=== PATIENT | male | born 1975 | race Hispanic/Latino ===

== ENCOUNTER 2019-12-23 14:00 | Inpatient (IN) | payer BC ==
[~2019-12-23] VITALS: Ht 166.4 cm; Wt 102.2 kg
[2019-12-23 08:46] VITALS: BP 115/73
[2019-12-27] VITALS (17 sets, daily range): BP systolic 109–127; BP diastolic 64–73
[2019-12-27] MEDS ORDERED: VANCOMYCIN 2 GM in SODIUM CHLORIDE 0.9% 500ML 500 ML IV SCH (05:00)
[2019-12-27] MEDS ORDERED: CEFAZOLIN 3GM /D5W 100ML 100 ML IV PRN (08:00)
[2019-12-27] MEDS ORDERED: LACTATED RINGERS 1000ML 1,000 ML IV ONE (09:02)
[2019-12-27] MEDS: CEFAZOLIN SODIUM 1 GM VIAL IVP SCH ×2 (09:45→16:17)
[2019-12-27 10:01] LABS: HEMATOCRIT 45.3 % (42-54); MEAN CORPUSCULAR HEMOGLOBIN 27.6 pg (27.0-33.0); MEAN CORPUSCULAR HGB CONC 32.7 g/dL (32.0-36.0); MEAN CORPUSCULAR VOLUME 84.5 fL (79-99); RED BLOOD CELL COUNT(AUTO) 5.36 MIL/uL (4.50-6.20); RED CELL DISTRIBUTION WIDTH 13.4 % (11.0-15.5); WHITE BLOOD COUNT (AUTO) 9.3 K/uL (4.8-10.8)
[2019-12-27 10:15] LABS: CREATININE 0.9 mg/dL (0.5-1.5); POTASSIUM 4.2 mmol/L (3.5-5.1)
[2019-12-27 10:24] LABS: INR 0.98 (0.85-1.15); PROTHROMBIN TIME 10.6 SEC (9.6-11.6)
[2019-12-27 10:31] LABS: APPEARANCE,URINE Clear (CLEAR); BILIRUBIN,URINE Negative (NEGATIVE); COLOR,URINE Yellow (YELLOW); GLUCOSE, URINE (UA) Negative (NEGATIVE); KETONES,URINE Negative (NEGATIVE); LEUKOCYTE ESTERASE ,URINE Negative (NEGATIVE); NITRATE,URINE Negative (NEGATIVE); OCCULT BLOOD,URINE Trace (NEGATIVE); PH,URINE 5.5 (5.0-8.0); PROTEIN,URINE Negative (NEGATIVE); UROBILINOGEN,URINE 0.2 mg/dL (0.2-1.0)
[2019-12-27 10:52] LABS: BACTERIA,URINE None Seen /HPF (None Seen); RBC,URINE 0-1 /HPF (0-1); SQUAMOUS EPITHELIAL CELL,UR Rare /HPF (0-2); WBC,URINE None Seen /HPF (0-1)
[2019-12-27] MEDS ORDERED: CELECOXIB 200 MG CAP ONE (14:08)
[2019-12-27] MEDS ORDERED: ACETAMINOPHEN EXTRA STRENGTH 500 MG TABLET ONE (14:08)
[2019-12-27] MEDS ORDERED: METOCLOPRAMIDE 10 MG/2 ML VIAL ONE (14:08)
[2019-12-27] MEDS ORDERED: PROPOFOL 10 MG/ML 20ML VIAL IV ONE (15:15)
[2019-12-27] MEDS ORDERED: MIDAZOLAM HCL 1 MG/ML 2ML VIAL ONE (15:15)
[2019-12-27] MEDS ORDERED: FENTANYL CITRATE PF 50 MCG/1 ML 2ML VIAL ONE ×3 (15:16→21:47)
[2019-12-27] MEDS ORDERED: ROCURONIUM 10MG/1ML SYR 10 MG/ML ML ONE ×3 (15:19→19:19)
[2019-12-27] MEDS ORDERED: ROPIVACAINE 0.5% 5MG/ML 30ML IJ ONE (15:23)
[2019-12-27] MEDS ORDERED: CEFAZOLIN SODIUM 1 GM VIAL ONE ×7 (15:52→21:03)
[2019-12-27] MEDS ORDERED: TRANEXAMIC ACID 1000MG/10ML ONE ×2 (16:05)
[2019-12-27] MEDS ORDERED: FENTANYL CITRATE PF 50 MCG/1 ML 5ML AMP IV ONE ×2 (17:27→19:11)
[2019-12-27 18:15] LABS: APPEARANCE BODY FLUID BLOODY (CLEAR); BODY FLUID WBC 130 /cu. mm.; COLOR,BODY FLUID RED (LT YELLOW); SPECIMENTYPE,BODY FLUID ASPIRATE; TOTAL VOLUME,BODY FLUID 5 mL
[2019-12-27 18:16] LABS: BODY FLUID RBC 242250 /cu. mm.
[2019-12-27 18:42] LABS: BF EOSINOPHIL 3 %; BF LYMPHOCYTE 51 %; BF MONOCYTE 2 %
[2019-12-27] MEDS ORDERED: NEOSTIGMINE 5MG/5ML SYR IV ONE (21:34)
[2019-12-27] MEDS ORDERED: GLYCOPYRROLATE 1 MG/5 ML SYRINGE ONE (21:34)
[2019-12-27] MEDS ORDERED: LIDOCAINE HCL-MPF 1% 2ML VIAL IV PRN (21:45)
[2019-12-27] MEDS ORDERED: DiphenhydrAMINE HCL 50 MG/ML VIAL IVP PRN (21:45)
[2019-12-27] MEDS ORDERED: OXYCODONE HCL 5 MG TAB PO PRN ×2 (21:45)
[2019-12-27] MEDS ORDERED: KETOROLAC TROMETHAMINE 15MG/ML IV PRN (21:45)
[2019-12-27] MEDS ORDERED: POTASSIUM CHLORIDE 10% ELIXIR 20 MEQ/15 ML UDCUP PO PRN (21:45)
[2019-12-27] MEDS ORDERED: FERROUS FUMARATE 324 MG TABLET PO PRN (21:45)
[2019-12-27] MEDS ORDERED: POTASSIUM CHLORIDE 20 MEQ ERTAB PO PRN (21:45)
[2019-12-27] MEDS ORDERED: CALCIUM CARBONATE 500 MG TABLET PO PRN (21:45)
[2019-12-27] MEDS: ACETAMINOPHEN EXTRA STRENGTH 500 MG TABLET PO SCH (21:45)
[2019-12-27] MEDS ORDERED: POTASSIUM CHLORIDE 20MEQ/100ML 100 ML IV PRN (21:45)
[2019-12-27] MEDS ORDERED: ONDANSETRON HCL 4 MG/2 ML VIAL IVP PRN (21:45)
[2019-12-27] MEDS ORDERED: TRAMADOL HCL 50 MG TABLET PO PRN (21:45)
--- NOTE | 2019-12-27 23:05 | NUR ---
RECEIVED PATIENT VITAL SIGNS STABLE PT DENIES SOB AND DENIES CHEST PAIN SURGICAL SITE DRY AND INTACT RADHA DRESSING FLASHING GREEN SCDS APPLIED ORDERES FOLLOWED ATTEMPTTED TO CALL PT'S REQUESTED BY PT TO INFORM PT IS OUT OF SURGERY AND RECOVERING AND STABLE BUT NO ONE ANSWERED AND VOICE MAIL FULL WILL CONTINUE TO MONITOR PT
[2019-12-27] MEDS ORDERED: VANCOMYCIN PROTOCOL PER PHARMACY IV SCH (23:45)
[2019-12-28] VITALS (11 sets, daily range): BP systolic 103–125; BP diastolic 59–79
[2019-12-28] MEDS ORDERED: VANCOMYCIN HCL 1 GM VIAL IV SCH
[2019-12-28] MEDS ORDERED: VANCOMYCIN 1GM+NS 250ML 250 ML IV ONE (00:30)
[2019-12-28] MEDS: SODIUM CHLORIDE 0.9% 1000ML 1,000 ML IV SCH ×4 (00:40→20:29)
[2019-12-28] MEDS: CEFAZOLIN SODIUM 1 GM VIAL IVP SCH ×3 (03:52→12:32)
[2019-12-28 05:14] LABS: HEMATOCRIT 39.9 % (42-54); MEAN CORPUSCULAR HEMOGLOBIN 27.8 pg (27.0-33.0); MEAN CORPUSCULAR HGB CONC 32.3 g/dL (32.0-36.0); RED BLOOD CELL COUNT(AUTO) 4.64 MIL/uL (4.50-6.20); RED CELL DISTRIBUTION WIDTH 13.5 % (11.0-15.5); WHITE BLOOD COUNT (AUTO) 20.4 K/uL (4.8-10.8)
[2019-12-28 05:31] LABS: CREATININE 1.1 mg/dL (0.5-1.5); POTASSIUM 4.1 mmol/L (3.5-5.1)
[2019-12-28] MEDS ORDERED: COMPOUND IV REFRIGERATED 1 EACH IVSOLN MISC PRN (06:30)
--- NOTE | 2019-12-28 06:33 | NUR ---
Mahi ADAMS PAGED TO NOTIFIED HIM OF PT'S REDNESS ON RIGHT SIDE TORSO
[2019-12-28] MEDS: ACETAMINOPHEN EXTRA STRENGTH 500 MG TABLET PO SCH ×3 (06:43→20:26)
[2019-12-28] MEDS: PREGABALIN 25 MG CAP PO SCH ×2 (08:58→20:21)
[2019-12-28] MEDS: FAMOTIDINE 20MG TAB 20 MG TAB PO SCH ×2 (08:58→20:21)
[2019-12-28] MEDS: POLYETHYLENE GLYCOL 3350 17 GM POWD.PACK PO SCH (08:58)
[2019-12-28] MEDS: APIXABAN 2.5 MG TABLET PO SCH ×2 (08:59→20:21)
[2019-12-28] MEDS: CELECOXIB 200 MG CAP PO SCH ×2 (08:59→20:21)
[2019-12-28] MEDS: VANCOMYCIN 1.25 GM in SODIUM CHLORIDE 0.9% 250 ML IV SCH ×2 (08:59→20:25)
[2019-12-28] MEDS: TAMSULOSIN HCL 0.4 MG CAP.ER.24H PO SCH (08:59)
--- NOTE | 2019-12-28 19:44 | NUR ---
D/C PLAN CM spoke to pt regarding d/c planning. Pt is [place] and lives with spouse. States spouse will be assisting in care as needed. Pt states he has standard walker without wheels and 10/12 bedside commode from previous hip surgery. CM explained orders for home health. Patient agreeable. CM offered choices. Obtained consent for [facility] home [facility]. CM to fax referral and follow up. Addendum: 12/28/19 at 1947 by CHANDRA PRINCE Amended: Links added.
[2019-12-29 04:00] VITALS: BP 117/72
[2019-12-29] MEDS: ACETAMINOPHEN EXTRA STRENGTH 500 MG TABLET PO SCH ×3 (05:00→21:04)
[2019-12-29 05:07] LABS: HEMATOCRIT 34.3 % (42-54); MEAN CORPUSCULAR HEMOGLOBIN 28.4 pg (27.0-33.0); MEAN CORPUSCULAR HGB CONC 32.9 g/dL (32.0-36.0); MEAN CORPUSCULAR VOLUME 86.2 fL (79-99); PLATELET COUNT (AUTO) 186 K/uL (130-400); RED BLOOD CELL COUNT(AUTO) 3.98 MIL/uL (4.50-6.20); RED CELL DISTRIBUTION WIDTH 13.2 % (11.0-15.5); WHITE BLOOD COUNT (AUTO) 12.2 K/uL (4.8-10.8)
[2019-12-29 05:27] LABS: BASOPHILS % (MANUAL) 1 % (0-2); LYMPHOCYTES % (MANUAL) 13 % (22-44); MAN.DIFF COMMENT-IMPRESSION MANUAL DIFFERENTIAL; MONOCYTES % (MANUAL) 12 % (2-9); PLATELET MORPHOLOGY COMMENT ADEQUATE; SEGMENTED NEUTROPHILS % 74 % (40-70)
--- NOTE | 2019-12-29 07:55 | NUR ---
NOTE AAOX3. REPORTS SOME DISCOMFORT TO LEFT HIP. HE IS POD#2 LEFT ARTHROPLASTY REVISION WITH EXCHANGE OF COMPONENTS SEEN IN SOME OF THE OPERATING NOTES AND WHAT DR ADAMS RELAYED TO PATIENT. PATIENT CONTINUES WITH IV VANCOMYCIN. HAS BEEN AFEBRILE. INCISION TO LEFT HIP COVERED WITH RADHA DRESSING WITHOUT LEAK NOTED AND NO DRAINAGE NOTED EITHER. BBS CLEAR. NO N/V TOLERATING DIET. LAST BM DAY BEFORE YESTERDAY. RECEIVING MIRALAX. VOIDS NO PROBLEM. WILL FIND OUT WHY HE IS ON FLOMAX HERE SINCE HE REPORTS NO PROSTATE ISSUES AND HE DID NOT HAVE F/C DURING SURGERY. WILL MEDICATE PATIENT FOR PAIN THIS MORNING PRIOR TO P.T. COMING.
[2019-12-29 08:07] VITALS: BP 105/68
[2019-12-29] MEDS: CELECOXIB 200 MG CAP PO SCH ×2 (08:45→21:04)
[2019-12-29] MEDS: APIXABAN 2.5 MG TABLET PO SCH ×2 (08:45→21:04)
[2019-12-29] MEDS: TAMSULOSIN HCL 0.4 MG CAP.ER.24H PO SCH (08:46)
[2019-12-29] MEDS: FAMOTIDINE 20MG TAB 20 MG TAB PO SCH ×2 (08:47→21:04)
[2019-12-29] MEDS: POLYETHYLENE GLYCOL 3350 17 GM POWD.PACK PO SCH (08:47)
[2019-12-29] MEDS: PREGABALIN 25 MG CAP PO SCH ×2 (08:47→21:04)
[2019-12-29] MEDS: VANCOMYCIN 1.25 GM in SODIUM CHLORIDE 0.9% 250 ML IV SCH (08:49)
[2019-12-29] MEDS: CEFAZOLIN SODIUM 1 GM VIAL IVP SCH (09:45)
[2019-12-29 10:53] VITALS: BP 111/59
[2019-12-29 16:14] VITALS: BP 101/64
[2019-12-29 19:03] VITALS: BP 119/66
[2019-12-29] MEDS: VANCOMYCIN 1.5 GM in SODIUM CHLORIDE 0.9% 250 ML IV SCH (21:20)
[2019-12-29 23:18] VITALS: BP 107/58
[2019-12-30 03:24] VITALS: BP 110/62
[2019-12-30] MEDS: ACETAMINOPHEN EXTRA STRENGTH 500 MG TABLET PO SCH ×2 (05:40→14:54)
[2019-12-30 08:00] VITALS: BP 119/71
[2019-12-30] MEDS: PREGABALIN 25 MG CAP PO SCH (09:12)
[2019-12-30] MEDS: CELECOXIB 200 MG CAP PO SCH (09:12)
[2019-12-30] MEDS: FAMOTIDINE 20MG TAB 20 MG TAB PO SCH (09:13)
[2019-12-30] MEDS: APIXABAN 2.5 MG TABLET PO SCH (09:13)
[2019-12-30] MEDS: POLYETHYLENE GLYCOL 3350 17 GM POWD.PACK PO SCH (09:13)
[2019-12-30] MEDS: VANCOMYCIN 1.5 GM in SODIUM CHLORIDE 0.9% 250 ML IV SCH (09:14)
[2019-12-30] MEDS: CEFAZOLIN SODIUM 1 GM VIAL IVP SCH (09:45)
--- NOTE | 2019-12-30 10:36 | NUR ---
RECEIVED REPORT FROM ROSALIA GUZMÁN .CARE RESUMED AT THIS TIME
[2019-12-30 11:58] VITALS: BP 119/71
[2019-12-30] MEDS ORDERED: BISACODYL 10 MG SUPP.RECT RC ONE (12:35)
--- NOTE | 2019-12-30 14:15 | NUR ---
CM Note: [employer] approval CM spoke to [employer] w/[employer]. Pt has approval. Primary nurse to give report once pt ready to DC. Primary nurse aware. Patient has own current working standard walker, and 3 in 1 chair. Safe to dc home w/hh once MD clear. CM to cont to follow up.
[2019-12-30 16:00] VITALS: BP 107/63
[2019-12-30] MEDS ORDERED: HYDR-4457 PO (16:35)
[2019-12-30] MEDS ORDERED: APIX2.5T PO (16:35)
[2019-12-30] MEDS ORDERED: BISACODYL 10 MG SUPP.RECT RC PRN (21:45)
== END 2019-12-30 19:00 | disposition home health service (06) | DRG 468 ==
LOC: EDSTATUS 14:00 → DAHIP 12-27 07:54 → 3DH 12-27 23:09
PROVIDERS: ADMIT Orthopaedic Surgery; ATTEND Orthopaedic Surgery
PROC: 3E0T3BZ Introduction of Anesthetic Agent into Peripheral Nerves and Plexi, Percutaneous Approach (ICD-10-PCS; 2019-12-27)
PROC: 0SRB0JZ Replacement of Left Hip Joint with Synthetic Substitute, Open Approach (ICD-10-PCS; principal; 2019-12-27 15:14)
PROC: 0SPB0JZ Removal of Synthetic Substitute from Left Hip Joint, Open Approach (ICD-10-PCS; 2019-12-27 15:14)
DX: T84.091A Other mechanical complication of internal left hip prosthesis, initial encounter (principal); F17.200 Nicotine dependence, unspecified, uncomplicated; E66.9 Obesity, unspecified; Z68.36 Body mass index [BMI] 36.0-36.9, adult; Y79.2 Prosthetic and other implants, materials and accessory orthopedic devices associated with adverse incidents; Z96.641 Presence of right artificial hip joint; Y92.89 Other specified places as the place of occurrence of the external cause; Z80.42 Family history of malignant neoplasm of prostate; T84.051A Periprosthetic osteolysis of internal prosthetic left hip joint, initial encounter
CPT/HCPCS: 36415; 73502; 80048; 80202; 81001; 85025; 85027; 85610; 87070; 87071; 87076; 87205; 87641; 89051; 96365; 96374; 97039; A4344; C1776; G0378; J0690; J1885; J2250; J2704; J2710; J2765; J2795; J3010; J3370; J3490; J7030; J7040; J7050; J7120

== ENCOUNTER 2020-12-09 07:20 | Day surgery (SDC) | payer BC ==
[2020-12-04 10:17] LABS: BASOPHILS % (AUTO) 0.4 % (0.0-5.0); EOSINOPHILS % (AUTO) 1.2 % (0.0-8.0); HEMATOCRIT 41.8 % (42-54); LYMPHOCYTES % (AUTO) 17.3 % (21.0-51.0); MEAN CORPUSCULAR HEMOGLOBIN 28.5 pg (27.0-33.0); MEAN CORPUSCULAR VOLUME 83.9 fL (79-99); MONOCYTES % (AUTO) 8.5 % (3.0-13.0); NEUTROPHILS % (AUTO) 72.2 % (40.0-77.0); PLATELET COUNT (AUTO) 208 K/uL (130-400); RED BLOOD CELL COUNT(AUTO) 4.98 MIL/uL (4.50-6.20); RED CELL DISTRIBUTION WIDTH 13.6 % (11.0-15.5); WHITE BLOOD COUNT (AUTO) 9.2 K/uL (4.8-10.8)
[2020-12-04 10:27] LABS: CREATININE 1.1 mg/dL (0.5-1.5); POTASSIUM 3.8 mmol/L (3.5-5.1)
[2020-12-08 11:36] VITALS: BP 119/74
[2020-12-09] VITALS (19 sets, daily range): BP systolic 103–123; BP diastolic 65–89
[~2020-12-09] VITALS: Ht 160 cm; Wt 105.7 kg
[2020-12-09] MEDS ORDERED: LACTATED RINGERS 1000ML 1,000 ML IV ONE (08:03)
[2020-12-09] MEDS: CEFAZOLIN SODIUM 1 GM VIAL IVP SCH ×2 (08:47→11:24)
[2020-12-09] MEDS ORDERED: PROPOFOL 10 MG/ML 20ML VIAL IV ONE ×2 (10:02→11:57)
[2020-12-09] MEDS ORDERED: SUCCINYLCHOLINE CHLORIDE 20 MG/ML 10 ML VIAL ONE (10:02)
[2020-12-09] MEDS ORDERED: LIDOCAINE PF 100MG/5ML (2%) SYRINGE 5ML ONE (10:02)
[2020-12-09] MEDS ORDERED: ROCURONIUM 10MG/1ML SYR 10 MG/ML ML ONE (10:03)
[2020-12-09] MEDS ORDERED: FENTANYL CITRATE PF 50 MCG/1 ML 2ML VIAL ONE (10:03)
[2020-12-09] MEDS ORDERED: ROPIVACAINE 0.5% 5MG/ML 30ML IJ ONE (10:06)
[2020-12-09] MEDS ORDERED: EPINEPHRINE 1 MG/ML 30ML VIAL IJ ONE (10:27)
[2020-12-09] MEDS ORDERED: GLYCOPYRROLATE 1 MG/5 ML SYRINGE ONE (13:02)
[2020-12-09] MEDS ORDERED: KETOROLAC 30MG VIAL (30MG/ML) ONE (13:03)
[2020-12-09] MEDS ORDERED: NEOSTIGMINE 5MG/5ML SYR IV ONE (13:03)
[2020-12-09] MEDS ORDERED: HYDR-4060 PO (13:17)
[2020-12-09] MEDS ORDERED: IBUP-2070 PO (13:17)
[2020-12-09] MEDS ORDERED: CEPH500B PO (13:17)
== END 2020-12-09 15:30 | disposition home or self-care (01) ==
LOC: DAH 07:20
PROVIDERS: ATTEND Orthopaedic Surgery
DX: M75.121 Complete rotator cuff tear or rupture of right shoulder, not specified as traumatic (principal); Z20.822 Contact with and (suspected) exposure to COVID-19; M19.011 Primary osteoarthritis, right shoulder; M25.811 Other specified joint disorders, right shoulder; G89.29 Other chronic pain; F17.210 Nicotine dependence, cigarettes, uncomplicated; Z98.890 Other specified postprocedural states; Z80.42 Family history of malignant neoplasm of prostate; Z72.89 Other problems related to lifestyle; Z79.899 Other long term (current) drug therapy
CPT/HCPCS: 29824; 29826; 29827; 36415; 64415; 76942; 80048; 85025; A4215; A4221; A4222; A4223; A4565; A4649 ×5; A4663; A4930; A6204; C1713 ×2; C9803; G0168; J0171; J0330; J0690; J1885; J2001; J2704; J2710; J2795; J3010; J3490; J7030; J7120; U0003